=== PATIENT | female | born 1960 | race Caucasian/White ===

== ENCOUNTER 2021-08-14 10:01 | Observation (INO) ==
[2021-08-14] MEDS ORDERED: *HR* HYDROcodone/Acet 5/325 mg TABLET PO ONE (11:48)
[2021-08-14 12:16] LABS: Basophils # 0.1 K/mcL (0.0-0.2); Basophils % 1.5 %; Eosinophils # 0.3 K/mcL (0.0-0.6); Eosinophils % 5.8 %; Hematocrit 43.5 % (35.3-44.9); Hemoglobin 13.7 g/dL (11.5-15.4); Immature Granulocytes % 0.7 % (0-4); Lymphocytes # 1.5 K/mcL (0.6-4.6); Lymphocytes % 25.1 %; Mean Corpuscular HGB Conc 31.5 g/dL (31.6-35.5); Mean Corpuscular Hemoglobin 32.7 pg (28.0-33.3); Mean Corpuscular Volume 103.8 fL (83.0-100.0); Mean Platelet Volume 9.5 fL (9.4-12.4); Monocytes # 0.5 K/mcL (0.0-1.3); Monocytes % 7.9 %; Neutrophils # 3.4 K/mcL (1.6-8.9); Platelet Count 131 K/mcL (140-400); Red Blood Count 4.19 M/mcL (3.82-4.97); Red Cell Distribution Width 15.4 % (11.5-14.5); White Blood Count 5.8 K/mcL (4.3-11.1)
[2021-08-14 12:23] LABS: VBG HCO3 34 mEq/L (21-27); VBG PCO2 76 mmHg (41-51); VBG PH 7.26 pH Units (7.32-7.42); VBG PO2 29 mmHg (25-50)
[2021-08-14 13:04] LABS: Bilirubin,Urine Negative (Negative); Blood,Urine Negative (Negative); Clarity,Urine Clear (Clear); Color,Urine Light-Yellow (Yellow); Glucose,Urine (UA) 50 mg/dL (Normal); Ketones,Urine Negative (Negative); Leukocyte Esterase,Urine Negative (Negative); Mucus,Urine Few per lpf (None-Few); Nitrite,Urine Negative (Negative); Protein,Urine 50 mg/dL (Neg-Trace); RBC,Urine 0-3 per hpf (0-3); Specific Gravity,Urine 1.021 (1.010-1.025); Squamous Epithelial Cell,Urine Few per hpf (None-Few); Urobilinogen,Urine Normal (Normal); WBC,Urine 0-3 per hpf (0-3)
[2021-08-14 13:10] LABS: Amphetamine Screen,Urine Negative ng/mL (Cutoff=1000); Barbiturate Screen,Urine Positive ng/mL (Cutoff=200); Benzodiazepines Screen,Urine Negative ng/mL (Cutoff=200); Cannabinoid Screen,Urine Negative ng/mL (Cutoff = 50); Cocaine Screen,Urine Negative ng/mL (Cutoff= 300); Opiate Screen,Urine Negative ng/mL (Cutoff=300); Phencyclidine Screen,Urine Negative ng/mL (Cutoff=25)
[2021-08-14 13:11] LABS: Adenovirus Not Detected (Not Detect); Bordetella Pertussis Not Detected (Not Detect); Chlamydophila pneumoniae Not Detected (Not Detect); Coronavirus 229E Not Detected (Not Detect); Coronavirus HKU1 Not Detected (Not Detect); Coronavirus NL63 Not Detected (Not Detect); Coronavirus OC43 Not Detected (Not Detect); Human Metapneumovirus Not Detected (Not Detect); Human Rhinovirus/Enterovirus Not Detected (Not Detect); Influenza A Subtype 2009 H1 Not Detected (Not Detect); Influenza B Not Detected (Not Detect); Mycoplasma pneumoniae Not Detected (Not Detect); Parainfluenza Virus 1 Not Detected (Not Detect); Parainfluenza Virus 2 Not Detected (Not Detect); Parainfluenza Virus 3 Not Detected (Not Detect); Parainfluenza Virus 4 Not Detected (Not Detect); Respiratory Syncytial Virus Not Detected (Not Detect); SARS-CoV-2 Not Detected (Not Detect)
[2021-08-14 13:23] LABS: Alanine Aminotransferase 15 Units/L (7-52); Albumin 3.9 g/dL (3.5-5.7); Albumin/Globulin Ratio 1.5 (1.1-2.2); Alkaline Phosphatase 65 Units/L (34-104); Aspartate Amino Transferase 14 Units/L (13-39); BUN/Creatinine Ratio 18 (6-26); Bilirubin,Direct 0.1 mg/dL (0.0-0.2); Bilirubin,Indirect 0.2 mg/dL (0.0-1.0); Bilirubin,Total 0.3 mg/dL (0.3-1.0); Blood Urea Nitrogen 20 mg/dL (8-23); Calcium 9.4 mg/dL (8.6-10.3); Carbon Dioxide 36 mEq/L (23-29); Chloride 104 mEq/L (98-107); Globulin 2.6 g/dL (2.4-3.5); Glucose 148 mg/dL (70-105); Lipase 15 Units/L (11-82); Osmolality,Calculated 291 (280-300); Potassium 4.5 mEq/L (3.5-5.1); Sodium 138 mEq/L (136-145); Total Protein 6.5 g/dL (6.4-8.9); Troponin I 0.06 ng/mL (< 0.04); eGFR For African Americans 60 (> 60); eGFR For Non-African Americans 49 (> 60)
[2021-08-14 14:02] LABS: Ethanol < 10 mg/dL (Less than 10)
[2021-08-14] MEDS ORDERED: Azithromycin 250 MG TABLET PO ONE (14:43)
[2021-08-14] MEDS ORDERED: cefTRIAXone 1,000 MG in Water for inj. (sterile) 10 ML IVP ONE (14:43)
[2021-08-14] MEDS ORDERED: cefTRIAXone 1,000 MG in 0.9 % Sodium Chloride Mini Bag 100 ML IVPB ONE (15:00)
[2021-08-14] MEDS ORDERED: Naloxone 0.4 MG/ML INJ IVP PRN (15:11)
[2021-08-14] MEDS ORDERED: Ondansetron 4 MG/2 ML VIAL IVP PRN (15:11)
[2021-08-14] MEDS ORDERED: D5% in Water 1,000 ML IVC PRN (15:16)
[2021-08-14] MEDS ORDERED: *HR* Dextrose 50 % in Water (Syg) 50 ML SYRINGE IVP PRN (15:16)
[2021-08-14] MEDS ORDERED: Dextrose Gel 15 GM/37.5 ML TUBE PO PRN ×2 (15:16)
[2021-08-14] MEDS: Ipratropium/Albuterol Neb 3 ML IH SCH ×3 (16:25→23:47)
[2021-08-14] MEDS: MethylPREDNISolone 40 MG/ML VIAL IVP SCH (17:28)
[2021-08-14 17:36] LABS: Mixed Venous Blood pCO2 57 mmHg (44-46); Mixed Venous Blood pH 7.36 pH Units (7.34-7.36); Mixed Venous Blood pO2 48 mmHg (35-45)
[2021-08-14] MEDS: Insulin LISPRO 300 UNITS/3 ML VIAL SUBQ SCH (19:26)
[2021-08-14] MEDS: Budesonide/Formoterol 160/4.5 1 PUFF INH IH SCH (20:21)
[2021-08-14] MEDS: BuPROPion SR (12 HR) 150 MG TABLET PO SCH (21:25)
[2021-08-15 00:27] LABS: Basophils # 0.1 K/mcL (0.0-0.2); Basophils % 1.1 %; Eosinophils % 0.6 %; Hematocrit 40.8 % (35.3-44.9); Hemoglobin 13.2 g/dL (11.5-15.4); Immature Granulocytes % 0.4 % (0-4); Lymphocytes # 0.8 K/mcL (0.6-4.6); Lymphocytes % 14.8 %; Mean Corpuscular HGB Conc 32.4 g/dL (31.6-35.5); Mean Platelet Volume 9.7 fL (9.4-12.4); Monocytes # 0.2 K/mcL (0.0-1.3); Monocytes % 3.6 %; Neutrophils # 4.2 K/mcL (1.6-8.9); Platelet Count 126 K/mcL (140-400); Red Cell Distribution Width 15.1 % (11.5-14.5); Segmented Neutrophils % 79.5 %; White Blood Count 5.3 K/mcL (4.3-11.1)
[2021-08-15] MEDS: MethylPREDNISolone 40 MG/ML VIAL IVP SCH ×2 (00:33→09:45)
[2021-08-15] MEDS: Insulin LISPRO 300 UNITS/3 ML VIAL SUBQ SCH ×2 (00:33→05:42)
[2021-08-15 00:44] LABS: BUN/Creatinine Ratio 16 (6-26); Blood Urea Nitrogen 17 mg/dL (8-23); Calcium 9.1 mg/dL (8.6-10.3); Carbon Dioxide 30 mEq/L (23-29); Chloride 100 mEq/L (98-107); Glucose 173 mg/dL (70-105); Magnesium 1.8 mg/dL (1.6-2.6); Osmolality,Calculated 288 (280-300); Phosphorous 3.2 mg/dL (2.7-4.5); Potassium 4.7 mEq/L (3.5-5.1); Sodium 136 mEq/L (136-145); eGFR For African Americans > 60 (> 60); eGFR For Non-African Americans 52 (> 60)
[2021-08-15] MEDS ORDERED: Acetaminophen 325 MG TABLET PO ONE (03:24)
[2021-08-15] MEDS: Ipratropium/Albuterol Neb 3 ML IH SCH ×3 (04:04→11:30)
[2021-08-15 04:05] VITALS: O2SAT 97
[2021-08-15] MEDS ORDERED: *HR* Enoxaparin 40 MG/0.4 ML SYRINGE SQ SCH (06:00)
[2021-08-15] MEDS: Budesonide/Formoterol 160/4.5 1 PUFF INH IH SCH (07:36)
[2021-08-15 08:20] VITALS: BP 136/78; PULSE 80; TEMP 98
[2021-08-15] MEDS ORDERED: allopurinoL 300 MG TABLET PO SCH (09:00)
[2021-08-15] MEDS ORDERED: levoFLOXacin 750 MG/150 ML 750 MG/150 ML BAG IVPB SCH (09:00)
[2021-08-15] MEDS: BuPROPion SR (12 HR) 150 MG TABLET PO SCH (09:40)
== END 2021-08-15 13:15 | disposition left against medical advice (07) ==
LOC: 2ANU 10:01 → EMEROOARM 10:01 → 2ANU 18:26
PROVIDERS: ADMIT Student in an Organized Health Care Education/Training Program; ATTEND Student in an Organized Health Care Education/Training Program

== ENCOUNTER 2022-04-22 15:43 | Inpatient (IN) ==
[2022-04-22] MEDS ORDERED: Acetaminophen 325 MG TABLET PO PRN (19:55)
[2022-04-22] MEDS ORDERED: *HR* Promethazine 25 MG/ML VIAL IM PRN (19:55)
[2022-04-22] MEDS ORDERED: Melatonin 3 MG TABLET PO PRN (19:55)
[2022-04-22] MEDS ORDERED: Naloxone 0.4 MG/ML INJ IVP PRN (19:55)
[2022-04-22] MEDS ORDERED: Ondansetron 4 MG/2 ML VIAL IVP PRN (19:55)
[2022-04-22] MEDS ORDERED: Dextrose Gel 15 GM/37.5 ML TUBE PO PRN ×2 (19:59)
[2022-04-22] MEDS ORDERED: *HR* Dextrose 50 % in Water (Syg) 50 ML SYRINGE IVP PRN (19:59)
[2022-04-22] MEDS ORDERED: D5% in Water 1,000 ML IVC PRN (19:59)
[2022-04-22] MEDS ORDERED: Ipratropium/Albuterol Neb 3 ML IH PRN (20:01)
[2022-04-22] MEDS ORDERED: Insulin DETEMIR 100 UNIT/ML X5UNITS SUBQ SCH (21:00)
[2022-04-22] MEDS ORDERED: Ringers Solution, Lactated 1,000 ML IVC SCH (21:15)
[2022-04-22] MEDS: Azithromycin 500 MG in 0.9 % Sodium Chloride 250 ML IVPB SCH (21:28)
[2022-04-22] MEDS: Budesonide/Formoterol 160/4.5 1 PUFF INH IH SCH (23:09)
[2022-04-22] MEDS: Ipratropium/Albuterol Neb 3 ML IH SCH (23:09)
[2022-04-22] MEDS: Insulin LISPRO 300 UNITS/3 ML VIAL SUBQ SCH (23:54)
[2022-04-22] MEDS: MethylPREDNISolone 40 MG/ML VIAL IVP SCH (23:54)
[2022-04-23] MEDS: Ipratropium/Albuterol Neb 3 ML IH SCH ×5 (03:43→20:12)
[2022-04-23] MEDS: Insulin LISPRO 300 UNITS/3 ML VIAL SUBQ SCH ×6 (05:48→17:16)
[2022-04-23] MEDS: *HR* Enoxaparin 40 MG/0.4 ML SYRINGE SQ SCH (05:48)
[2022-04-23 07:22] LABS: Basophils % 0.5 %; Eosinophils % 0.2 %; Hemoglobin 17.7 g/dL (11.5-15.4); Lymphocytes # 0.5 K/mcL (0.6-4.6); Lymphocytes % 8.2 %; Mean Corpuscular HGB Conc 33.4 g/dL (31.6-35.5); Mean Corpuscular Hemoglobin 31.7 pg (28.0-33.3); Mean Corpuscular Volume 94.8 fL (83.0-100.0); Mean Platelet Volume 10.2 fL (9.4-12.4); Monocytes # 0.1 K/mcL (0.0-1.3); Monocytes % 1.4 %; Platelet Count 102 K/mcL (140-400); Red Blood Count 5.59 M/mcL (3.82-4.97); Red Cell Distribution Width 13.2 % (11.5-14.5); Segmented Neutrophils % 88.7 %; White Blood Count 5.8 K/mcL (4.3-11.1)
[2022-04-23 07:23] LABS: Neutrophils # 5.1 K/mcL (1.6-8.9)
[2022-04-23 07:35] LABS: Prothrombin Time 11.4 Seconds (9.4-12.1)
[2022-04-23 07:37] LABS: Calcium 9.4 mg/dL (8.6-10.3); Magnesium 1.7 mg/dL (1.6-2.6); Phosphorous 2.6 mg/dL (2.7-4.5); Potassium 4.1 mEq/L (3.5-5.1)
[2022-04-23] MEDS: MethylPREDNISolone 40 MG/ML VIAL IVP SCH ×2 (07:40→15:05)
[2022-04-23] MEDS: Budesonide/Formoterol 160/4.5 1 PUFF INH IH SCH ×2 (07:49→20:13)
[2022-04-23] MEDS: cefTRIAXone 1,000 MG in Water for inj. (sterile) 10 ML IVP SCH (07:52)
[2022-04-23] MEDS ORDERED: *HR* OxyCODONE Immed Rel 5 MG TABLET PO PRN (08:21)
[2022-04-23] MEDS: Venlafaxine XR (24 HR) 150 MG CAP.ER.24H PO SCH (09:41)
[2022-04-23] MEDS: Multivit/Ca/Min/Fe/FA 1 TAB TABLET PO SCH (09:41)
[2022-04-23] MEDS: QUEtiapine Fumarate 25 MG TABLET PO SCH (09:41)
[2022-04-23] MEDS: tiZANidine 4 MG TABLET PO SCH ×3 (09:41→20:13)
[2022-04-23] MEDS: Aspirin Enteric Coated 81 MG Tablet PO SCH (09:41)
[2022-04-23] MEDS: Azithromycin 500 MG in 0.9 % Sodium Chloride 250 ML IVPB SCH (20:13)
[2022-04-23] MEDS ORDERED: Insulin DETEMIR 100 UNIT/ML X5UNITS SUBQ SCH (21:00)
[2022-04-23] MEDS ORDERED: Primidone 50 MG TABLET PO SCH (21:00)
[2022-04-23] MEDS ORDERED: Insulin LISPRO 300 UNITS/3 ML VIAL SUBQ SCH (21:00)
[2022-04-24] MEDS: Ipratropium/Albuterol Neb 3 ML IH SCH ×4 (00:48→11:03)
[2022-04-24] MEDS ORDERED: Insulin LISPRO 300 UNITS/3 ML VIAL SUBQ ONE (01:29)
[2022-04-24] MEDS: *HR* Enoxaparin 40 MG/0.4 ML SYRINGE SQ SCH (05:06)
[2022-04-24 06:13] LABS: Basophils % 0.2 %; Hematocrit 49.8 % (35.3-44.9); Hemoglobin 16.8 g/dL (11.5-15.4); Immature Granulocytes % 0.6 % (0-4); Lymphocytes # 0.9 K/mcL (0.6-4.6); Lymphocytes % 6.1 %; Mean Corpuscular HGB Conc 33.7 g/dL (31.6-35.5); Mean Corpuscular Hemoglobin 31.4 pg (28.0-33.3); Mean Corpuscular Volume 93.1 fL (83.0-100.0); Mean Platelet Volume 10.9 fL (9.4-12.4); Monocytes # 0.7 K/mcL (0.0-1.3); Monocytes % 5.2 %; Neutrophils # 12.3 K/mcL (1.6-8.9); Platelet Count 115 K/mcL (140-400); Red Blood Count 5.35 M/mcL (3.82-4.97); Red Cell Distribution Width 13.1 % (11.5-14.5); Segmented Neutrophils % 87.9 %
[2022-04-24 06:35] LABS: Calcium 9.8 mg/dL (8.6-10.3); Potassium 3.6 mEq/L (3.5-5.1)
[2022-04-24] MEDS: Budesonide/Formoterol 160/4.5 1 PUFF INH IH SCH (07:35)
[2022-04-24] MEDS ORDERED: predniSONE 20 MG TABLET PO SCH (09:00)
[2022-04-24] MEDS: Insulin LISPRO 300 UNITS/3 ML VIAL SUBQ SCH ×4 (09:37→11:45)
[2022-04-24] MEDS: Venlafaxine XR (24 HR) 150 MG CAP.ER.24H PO SCH (09:37)
[2022-04-24] MEDS: Aspirin Enteric Coated 81 MG Tablet PO SCH (09:37)
[2022-04-24] MEDS: cefTRIAXone 1,000 MG in Water for inj. (sterile) 10 ML IVP SCH (09:37)
[2022-04-24] MEDS: Multivit/Ca/Min/Fe/FA 1 TAB TABLET PO SCH (09:38)
[2022-04-24] MEDS: QUEtiapine Fumarate 25 MG TABLET PO SCH (09:38)
[2022-04-24] MEDS: tiZANidine 4 MG TABLET PO SCH ×2 (09:38→14:04)
[2022-04-24 10:25] VITALS: PULSE 86
[2022-04-24 11:33] VITALS: BP 124/70; TEMP 98.8; O2SAT 97
== END 2022-04-24 15:00 | disposition home or self-care (01) | DRG 189 ==
LOC: 2NENU → SUATTDRO 19:16
PROVIDERS: ADMIT Internal Medicine; ATTEND Internal Medicine